=== PATIENT | female | born 1960 | race Two or more races ===

== ENCOUNTER 2019-02-16 21:37 | Emergency (ER) | payer SELFPAY ==
[~2019-02-16] VITALS: Ht 152.4 cm; Wt 64.0 kg
[2019-02-16 22:08] VITALS: BP 133/72
[2019-02-16] MEDS ORDERED: ACETAMINOPHEN 325MG TABLET PO ONE (23:00)
== END 2019-02-18 00:40 | disposition home or self-care (01) ==
LOC: ER 21:37
DX: M75.31 Calcific tendinitis of right shoulder (principal); M25.511 Pain in right shoulder; M79.641 Pain in right hand
CPT/HCPCS: 73030; 73130; 99283